=== PATIENT | female | born 1995 | race Caucasian/White ===

== ENCOUNTER 2021-07-27 03:01 | Emergency (ER) | payer OTHER ==
[~2021-07-27] VITALS: Ht 157.5 cm; Wt 53.1 kg
[2021-07-27 03:05] VITALS: BP 120/74
--- NOTE | 2021-07-27 03:20 | NUR ---
patient bib self for c/o numbness, tingling, and pain 8/10 in l arm x 2 days.
[2021-07-27] MEDS ORDERED: DEXAMETHASONE 4 MG/ML VIAL IM ONE (03:35)
[2021-07-27] MEDS ORDERED: KETOROLAC 60 MG/2 ML VIAL IM ONE (03:35)
[2021-07-27] MEDS ORDERED: IBUP-2218 PO (04:01)
== END 2021-07-27 05:14 | disposition home or self-care (01) ==
LOC: MED 03:01
DX: R20.0 Anesthesia of skin (principal); Z91.018 Allergy to other foods
CPT/HCPCS: 73090; 81025; 99283; J1100; J1885; Q0092